=== PATIENT | female | born 1985 | race American Indian/Alaskan Native ===

== ENCOUNTER 2020-06-20 16:05 | Outpatient (CLI) | payer BC ==
[2020-06-20 16:51] LABS: Hematocrit 33.6 % (30.3-42.9); Hemoglobin 10.5 gm/dl (10.1-14.3); Mean Corpuscular HGB Conc 31 % (30-34); Mean Corpuscular Volume 75 fl (79-97); Platelet Count 301 K/mm3 (140-440); Red Blood Count 4.51 M/mm3 (3.65-5.03); Red Cell Distribution Width 17.6 % (13.2-15.2)
== END 2020-06-20 16:06 | disposition home or self-care (01) ==
LOC: LAB 16:05
PROVIDERS: ATTEND Obstetrics & Gynecology
DX: Z13.29 Encounter for screening for other suspected endocrine disorder (principal); Z13.0 Encounter for screening for diseases of the blood and blood-forming organs and certain disorders involving the immune mechanism
CPT/HCPCS: 36415; 84443; 85027

== ENCOUNTER 2020-09-06 09:29 | Inpatient (IN) | payer BC ==
[2020-09-05 11:09] LABS: Basophils % (Auto) 0.6 % (0.0-1.8); Eosinophils # (Auto) 0.1 K/mm3 (0.0-0.4); Eosinophils % (Auto) 1.5 % (0.0-4.3); Hemoglobin 10.4 gm/dl (10.1-14.3); Lymphocytes # (Auto) 2.3 K/mm3 (1.2-5.4); Lymphocytes % (Auto) 31.4 % (13.4-35.0); Mean Corpuscular HGB Conc 32 % (30-34); Mean Corpuscular Volume 73 fl (79-97); Monocytes # (Auto) 0.5 K/mm3 (0.0-0.8); Monocytes % (Auto) 6.5 % (0.0-7.3); Platelet Count 336 K/mm3 (140-440); Red Cell Distribution Width 18.7 % (13.2-15.2)
--- NOTE | 2020-09-05 13:53 | History and Physical Report ---
History of Present Illness Date of examination: 08/31/20 Date of admission: 09/06/2020 Chief complaint: Menorrhagia, fibroids, endometrial mass, pelvic pain History of present illness: c/o consistent, sharp lower ABD pain since Saturday. Reports was seen by PCP who advised her to f/u with [facility] for TVUS to assess her sx. Has been taking OTC Motrin with minimal pain relief. States was told have small fibroids in 2017 but denies any hx of complications related to them. Reports regular monthly cycles that have been heavier and last longer for the past year. She reports she wears two overnight pads at a time and changes them q 2 hrs d/t saturation. Her cycles last 5-6 days instead of 3-4 days. Plus her cycles are more painful which used to not be an issue for her. Does not use any primary form of contraception. Last pap 2016 and reports negative results. Also reports occassional dyspareunia with deep penetration and she defecates less than normal but has no difficulties with defecation. Denies fever, chills, chest pain, N/V, flank pain, dysuria, urinary frequency/urgency, foul-smelling or dark-colored urine, constipation, diarrhea, hematuria, blood in stools, vaginal discharge or odor, itching, burning, abnormal vaginal bleeding or postcoital bleeding, hx of abnormal paps, any STD hx, ovarian cyst, or PCOS Past History : 1 Term Births: 1 Premature Births: 0 Living Children: 1 Para: 1 Mult. Births: 0 Prev : 0 Prev. attempt? 0 Aborta: 0 Elect. Ab: 0 Spont. Ab: 0 Ectopics: 0 # 1 Delivery date: 2007 Delivery type: PRINCIPAL TECHNICAL SPECIALIST History Uterine Surgery (not C/S): negative Operations: Abdominoplasty (2015) and breast reduction (2018) cosmetic surgeries; scar revision of abdominolasty incision (2019) Hospitalizations: negative Anesthesia Complications: negative Abnormal PAP: negative Uterine Anomaly: positive fibroids ADOLFO Exposure: negative Infertility: negative Infection History HIV Risk Eval: no Personal hx. 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 Fibroids Past Surgical History: Reviewed history from 06/15/2020 and no changes required: Abdominoplasty (2015) and breast reduction (2018) cosmetic surgeries; scar revision of abdominolasty incision (2019) Family History Summary: Reviewed history and no changes required: 09/05/2020 Other Family Member - Has No Family History of Uterine Cancer - Entered On: 06/16/2020 Other Family Member - Has No Family History of Small Bowel Cancer - Entered On: 06/16/2020 Other Family Member - Has No Family History of Stomach Cancer - Entered On: 06/16/2020 Other Family Member - Has No Family History of Pancreatic Cancer - Entered On: 06/16/2020 Other Family Member - Has No Family History of Ovarvian Cancer - Entered On: 06/16/2020 Other Family Member - Has No Family History of Kidney/Urinary Tract Cancer - Entered On: 06/16/2020 Other Family Member - Has No Family History of Spontaneous DVT-PE - Entered On: 06/16/2020 Other Family Member - Has No Family History of Colon Cancer - Entered On: 06/16/2020 Other Family Member - Has No Family History of Brain Cancer - Entered On: 06/16/2020 Other Family Member - Has No Family History of Breast Cancer - Entered On: 2020 Other Family Member - Has No Family History of Biliary Tract Cancer - Entered On: 06/16/2020 Other Family Member - Has Family History of Diabetes - Entered On: 04/03/2019 Social History: Reviewed history from 04/03/2019 and no changes required: Patient is single Smoking History: Patient has never smoked. Risk Factors: Smoked Tobacco Use: Never smoker Smokeless Tobacco Use: Never Passive smoke exposure: no Drug use: no HIV high-risk behavior: no Alcohol use: yes Exercise: yes Seatbelt use: 100 % Previous Tobacco Use: Signed On 08/10/2020 Smoked Tobacco Use: Never smoker Smokeless Tobacco Use: Never Passive smoke exposure: no Drug use: no HIV high-risk behavior: no Caffeine use: <1 drinks per day Previous Alcohol Use: Signed On 08/10/2020 Alcohol use: yes Type: occ Drinks per day: social Exercise: yes Times per week: occ Type of Exercise: walking, jogging, and crunches Seatbelt use: 100 % PAP Smear History: Date of Last PAP Smear: 06/15/2020 Physical Exam Appearance: well developed, well nourished, no acute distress Other Exams Lungs: no rales, rhonchi, or wheezes Heart: S1, S2, no murmur, rub, or gallop Genitourinary Exam Uterus: deferred for EUA Impression & Recommendations: Problem # 1: Menorrhagia (ICD-626.2) (HYY09-X59.0) Her updated medication list for this problem includes: Multivitamins Oral Capsule (Multiple vitamin) Aleve Tablet (Naproxen sodium tabs) Motrin Ib Capsule (Ibuprofen caps) Orders: Ofc Vst Est 46310 (CPT-36919) Diagnosis explained to patient . Discussed with patient various medical, surgical and radiological therapies common for treatment including, but not limited to, myomectomy, hysterectomy and uterine artery embolization. Discussed risks and benefits of laparotomy, laparoscopy, and robotic assisted approaches for myomectomy. Patient desires treatment in the form of abdominal myomectomy. The risks and alternatives for this surgery were reviewed with the patient. She was informed of the risks of the surgery including, but not limited to, pain, infection, bleeding possibly heavy enough to require a blood transfusion with associated risks of infections (hepatitis and HIV) and transfusion reactions, possible hysterectomy, possible damage to bowel, bladder or ureter(s) and surrounding organs. Patient advised the small risks of spreading of malignancy if morcellation is required during the surgery patient understands and approves performing if necessary. Questions answered. She was imformed menorrhagia may persist or recur as long and she has a uterus. Consent reviewed and signed The patient was instructed/informed the following: The normal length of hospital stay for this procedure. Nothing to eat or drink after midnight the evening prior to surgery.. Pre-op instruction sheets given. Wound care instructions given. Problem # 2: Endometrial mass (ICD-236.0) (LMK50-S82.0) Will proceed with hysteroscopic ressection to possible prevent entering the cavity at the time of myometcomy. She was informed of possibel perforation that may require hysterectomy that will prevent furture pregnancie. Orders: Ofc Vst Est 21195 (CPT-46513) Problem # 3: Fibroids of uterus; Intramural (ICD-218.1) (BUQ12-L26.1) Orders: Ofc Vst Est 16568 (CPT-49732) Her updated medication list for this problem includes: Aleve Tablet (Naproxen sodium tabs) Motrin Ib Capsule (Ibuprofen caps) She was informed more fibroids may develop that require additonal surgeries or procedures Problem # 4: Dysmenorrhea (ICD-625.3) (EHA99-V21.6) Her updated medication list for this problem includes: Multivitamins Oral Capsule (Multiple vitamin) Aleve Tablet (Naproxen sodium tabs) Motrin Ib Capsule (Ibuprofen caps) Orders: Ofc Vst Est 39105 (CPT-34744) Problem # 5: Pelvic and perineal pain (ICD-789.00) (PNJ77-R11.2) It was extensively explained to her that her pain may persist, recur or change in nature due to the difficulty with determining the exact etiology(ies) of chronic pelvic pain or development of adhesions. She declined other treatment options at this time. Questions were encouraged and answered Her updated medication list for this problem includes: Aleve Tablet (Naproxen sodium tabs) Motrin Ib Capsule (Ibuprofen caps) Orders: Ofc Vst Est 35736 (CPT-86939) Medications Added to Medication List This Visit: 1) Multivitamins Oral Capsule (Multiple vitamin) ] Medications and Allergies Allergies Allergy/AdvReac Type Severity Reaction Status Date / Time No Known Allergies Allergy Unverified 08/31/20 17:18 Home Medications Medication Instructions Recorded Confirmed Last Taken Type No Known Home Medications [No 08/31/20 08/31/20 Unknown History Reported Home Medications] Active Meds: Active Medications Cefazolin Sodium (Ancef/Sterile Water 2 Gm/20 Ml) 2 gm in 20 mls @ 80 mls/hr IV PREOP NR; Protocol Results - Labs 09/05/20 06:00 Abnormal lab results 09/05/20 Range/Units 06:00 MCV 73 L (79-97) fl MCH 23 L (28-32) pg RDW 18.7 H (13.2-15.2) % Assessment and Plan - Patient Problems (1) Menorrhagia Status: Acute (2) Endometrial mass Status: Acute (3) Pelvic pain Status: Acute (4) Secondary dysmenorrhea Status: Acute (5) Fibroids Status: Acute
--- NOTE | 2020-09-05 15:19 | Anesthesia Consultation ---
Anesthesia Consult and Med Hx Date of service: 09/06/20 - Airway Anesthetic Teeth Evaluation: Caps ROM Head & Neck: Adequate Mental/Hyoid Distance: Adequate Mallampati Class: Class III Intubation Access Assessment: Probably Good - Pre-Operative Health Status ASA Pre-Surgery Classification: ASA2 Proposed Anesthetic Plan: General Nerve Block: TAP - Central Nervous System Hx Psychiatric Problems: No - Hematic Hx Sickle Cell Disease: No - Other Systems Hx Cancer: No Hx Obesity: Yes - Additional Comments Anesthesia Medical History Comments: Works as RT at [employer]
[2020-09-06] MEDS ORDERED: MAGNESIUM OXIDE 400 MG TAB PO SCH (10:00)
[2020-09-06] MEDS ORDERED: LACTATED RINGERS 1,000 ML IV SCH (10:00)
[2020-09-06] MEDS ORDERED: GABAPENTIN 300 MG CAP PO NR (10:00)
[2020-09-06] MEDS ORDERED: fentaNYL 100 MCG/2 ML INJ IV SCH (10:00)
[2020-09-06] MEDS ORDERED: ceFAZolin/Water 2 GM/20 ML 2 GM/20 ML SYRINGE IV NR (10:00)
[2020-09-06] MEDS ORDERED: MIDAZOLAM 2 MG/2 ML INJ IV NR (10:00)
[2020-09-06] MEDS ORDERED: ACETAMINOPHEN 500 MG TAB PO SCH (10:00)
[2020-09-06] MEDS ORDERED: CELECOXIB 200 MG CAP PO NR (10:00)
--- NOTE | 2020-09-06 10:07 | Anesthesia Day of Surgery ---
Anesthesia Day of Surgery - Day of Surgery Patient Examined: Yes Patient H&P Reviewed: Yes Patient is NPO: Yes
[2020-09-06] MEDS ORDERED: BUPIVACAINE/PF (0.25%) 2.5 MG/ML 30 ML VIAL INFILTRATI ONE (10:10)
[2020-09-06] MEDS ORDERED: dexAMETHasone 4 MG/ML VIAL ONE (10:10)
[2020-09-06] MEDS ORDERED: HYDROmorphone 1 MG/1 ML INJ IV PRN ×4 (10:30→18:42)
[2020-09-06] MEDS ORDERED: ONDANSETRON 4 MG/2 ML INJ IV PRN ×3 (10:30→18:42)
[2020-09-06] MEDS ORDERED: ONDANSETRON 4 MG/2 ML INJ ONE (13:22)
[2020-09-06] MEDS ORDERED: HYDROmorphone 1 MG/1 ML INJ ONE (13:23)
[2020-09-06] MEDS ORDERED: fentaNYL 100 MCG/2 ML INJ ONE (13:23)
[2020-09-06] MEDS ORDERED: propofoL 200 MG/20 ML VIAL IV ONE (13:23)
[2020-09-06] MEDS ORDERED: dexAMETHasone 20 MG/5 ML VIAL ONE (13:24)
[2020-09-06] MEDS ORDERED: ePHEDrine SULFATE 50 MG/1 ML INJ ONE (13:24)
[2020-09-06] MEDS ORDERED: LIDOCAINE MPF (2%) 20 MG/1 ML VIAL 5 ML ONE (13:24)
[2020-09-06] MEDS ORDERED: VASOPRESSIN 20 UNIT/1 ML INJ ONE (13:32)
[2020-09-06] MEDS ORDERED: SODIUM CHLORIDE 0.9% 100 ML ONE ×2 (13:32→16:27)
[2020-09-06] MEDS ORDERED: CITRIC ACID-SOD CITRATE 500 ML IV ONE (13:55)
[2020-09-06] MEDS ORDERED: VASOPRESSIN 20 UNIT/1 ML INJ IM ONE (15:15)
[2020-09-06] MEDS ORDERED: SODIUM CHLORIDE 0.9% IRR 1,500 ML BOTTLE IR ONE (15:15)
[2020-09-06] MEDS ORDERED: SODIUM CHLORIDE 0.9% 100 ML IVPB IV ONE (15:15)
[2020-09-06] MEDS ORDERED: SODIUM CHLORIDE 0.9% IRRIG SOLN 2000 ML IR ONE (15:15)
[2020-09-06] MEDS ORDERED: LACTATED RINGERS 1,000 ML ONE (16:12)
[2020-09-06] MEDS ORDERED: ROCURONIUM 50 MG/5 ML INJ IV ONE (16:16)
[2020-09-06] MEDS ORDERED: KETOROLAC 30 MG/1 ML INJ ONE (16:46)
[2020-09-06] MEDS ORDERED: NEOSTIGMINE 10MG/10 ML INJ MDV ONE (16:51)
[2020-09-06] MEDS ORDERED: GLYCOPYRROLATE 0.4 MG/2 ML INJ ONE ×2 (16:52→16:53)
[2020-09-06] MEDS: HYDROmorphone 1 MG/1 ML INJ IV PRN ×5 (17:23→19:00)
--- NOTE | 2020-09-06 17:28 | Post Operative Note ---
Pre-op diagnosis: h'scopic m'ectomy, abd m'ectomy PAULO Post-op diagnosis: same Procedure: h'scopic m'ectomy, abd m'ectomy PAULO Anesthesia: GETA Surgeon: ALMA VALLEJO ([facility] ) Estimated blood loss: other (325mL, CS 125) Specimen disposition: to lab Condition: stable Disposition: PACU
--- NOTE | 2020-09-06 18:09 | Post Anesthesia Evaluation ---
- Post Anesthesia Evaluation Patient Participated: Yes Airway Patent: Yes Stable Respiratory Function: Yes Nausea/Vomiting: No Temp > 96.8F: Yes Pain Manageable: Yes Adequeate Hydration: Yes Anesthesia Complications: No Block Receding Appropriately: Yes Patient on Ventilator: No
[2020-09-06] MEDS ORDERED: METOCLOPRAMIDE 10 MG/2 ML INJ IV PRN (18:42)
[2020-09-06] MEDS ORDERED: D5W/0.9% NACL 1,000 ML IV SCH (18:42)
--- NOTE | 2020-09-06 19:07 | Operative Report ---
Operative Report Operative Report: Date: 09/06/2020 PREOPERATIVE DIAGNOSIS: 1. Uterine fibroids 2. Menorrhagia 3. Pelvic pain 4. Desires fertility 5. Endometrial mass POSTOPERATIVE DIAGNOSIS: 1. Uterine fibroids 2. Menorrhagia 3. Pelvic pain 4. Desires fertility 5. Endometrial mass 6. Pelvic adhesions OPERATION PERFORMED: 1. Hysteroscopic resection of endometrial mass 2. Abdominal myomectomy 3. Lysis of adhesion SURGEON: Judy Orourke MD BANK OPERATIONS OFFICER: Kael Todd ANESTHESIA: General. ESTIMATED BLOOD LOSS: 350 mL. She received 125 mils of Cell Saver blood COMPLICATIONS: None. OPERATIVE FINDINGS: Exam under anesthesia revealed the uterus to be approximately 18 weeks size, fixed. DESCRIPTION OF OPERATION: The patient was seen in the preoperative suite. Expected procedure and postoperative course discussed with her. She was taken to the operative suite where general anesthesia was induced with only the health insurance specialist and anesthesiologist present. She was placed in a dorsal lithotomy position. Exam under anesthesia revealed as above. She was prepped and draped in the normal sterile fashion. Timeout was performed. Coello catheter was introduced into the bladder. A bivalve operative speculum was placed in the vagina. The cervix and vagina were grossly normal with no obvious masses or deformities and the anterior lip of the cervix was grasped with the single-tooth tenaculum. The uterus was sounded to ~12 cm. The cervix was progressively dilated to allow the operative hysteroscope. Under direct visualization, the right os was visualized. The endometrial lining appeared to have been. However, there was no obvious evidence of malignancy. There was an approximately 2 cm round lesion noted on the left lateral wall obscuring the ability to see the left ostia. At this point the Myosure device was used to resect the mass in the usual fashion. The tissue was obtained and sent to Pathology for evaluation, permanent. The hysteroscope was introduced again, no evidence of perforation was noted. At this point procedure was ended. The single-tooth tenaculum and speculum were removed. The cervix was found to be hemostatic. Counts were correct. Distention fluid: Normal saline Deficit: 50 mL Sterile gloves were placed and then attention was turned to the abdomen. A Pfannenstiel skin incision was made with a scalpel and carried down to the underlying fascia with a Bovie. This incision was extended laterally using Monroe scissors. The superior and inferior aspects of this incision were grasped with the Antonio clamps, elevated, and the rectus muscles were dissected off. Access w as gained to the peritoneal cavity through a separation of the rectus muscles. The pelvis showed an enlarged multiple fibroid uterus. No evidence of malignancy was noted. She was placed in Trendelenburg position. The bowel was placed in the upper abdomen using large moist lap pads. The O'Braden- O'Fermin retractor was placed into the patients abdomen and the bowel was secured in the upper abdomen with the abdominal blade and the bladder blade was placed as well to facilitate visualization. Once there was proper visualization of the uterus, Pitressin was injected along the myoma surfaces. Multiple uterine fibroids were noted throughout the uterus. Each myoma was isolated and, using the needle tip Bovie cautery, serosa was incised and the fibroids were grasped with the a towel clip and removed from the shell with blunt and sharp dissection. An incision was made on the anterior aspect of the uterus where a large degenerating fibroid or adenomyoma was noted that was removed in pieces and sent to pathology, permanent. The posterior uterine cavity was entered in order to remove a fibroid that was palpated. After careful visualization and palpation no other fibroids were identified. Each defect was closed in layers using 0 Vicryl in a series of [id number]. Hemostasis was ensured throughout each incision site. The pelvis was then irrigated with warm normal saline and again hemostasis was ensured. Surgicel as well as Interceed was applied over the incisions of the uterus. Hemostasis was noted. All packs and retractors were removed from the patients abdomen. She was flattened out of the Trendelenburg position. The fascia was reapproximated using 0 Vicryl in a simple running stitch. The subcutaneous tissue was closed using 0 Vicryl suture in a simple running stitch and finally the skin was closed with 4- 0 Monocryl in a subcuticular manner. Sponge, lap, and needle counts were correct x3 and she was taken to the recovery room in stable condition. The posterior of the uterine cavity was entered while removing the fibroids therefore this patient will require for delivery.
[2020-09-06] MEDS ORDERED: ACETAMINOPHEN 325 MG TAB PO SCH (20:00)
--- NOTE | 2020-09-06 20:11 | Event Note ---
Date: 09/06/20 Patient resting in bed. Operative findings and procedures explained. Plan of care discussed. Patient states Dilaudid is not helping her pain. Pain management strategy discussed. RN to determine what pain medication the patient would like.Will consider pain medication as requested by the patient if appropriate. Per RN now patient is upset b/c her son will not be allowed to visit [facility] d/t [facility] policy.
[2020-09-06] MEDS ORDERED: NALOXONE 2 MG/2 ML INJ IV PRN (20:13)
[2020-09-06] MEDS: ACETAMINOPHEN 500 MG TAB PO SCH (20:32)
[2020-09-06] MEDS: FAMOTIDINE 20 MG/2 ML INJ IV SCH (21:35)
[2020-09-07] MEDS: KETOROLAC 30 MG/1 ML INJ IV SCH ×4 (00:35→17:41)
[2020-09-07] MEDS: HYDROmorphone 1 MG/1 ML INJ IV PRN (01:40)
[2020-09-07] MEDS: ACETAMINOPHEN 500 MG TAB PO SCH ×3 (02:36→14:21)
[2020-09-07] MEDS: ceFAZolin/NS 1 GM/50 ML 1 GM/50 ML BAG IV SCH ×2 (02:36→11:47)
[2020-09-07 06:05] LABS: Hematocrit 27.8 % (30.3-42.9); Hemoglobin 8.7 gm/dl (10.1-14.3)
[2020-09-07] MEDS ORDERED: HYDROmorphone 1 MG/1 ML INJ IV PRN (09:30)
--- NOTE | 2020-09-07 09:42 | Progress Note ---
Assessment and Plan - Patient Problems (1) S/P myomectomy Current Visit: Yes Status: Acute Plan to address problem: Doing well, will advance diet after flatus. Plan of care explained. Encourage ambulation (2) Anemia Current Visit: Yes Status: Acute Qualifiers: Other causes of anemia: acute posthemorrhagic Plan to address problem: Asymptomatic Observe for now, will start FeSO when she start solid diet (3) Menorrhagia Current Visit: No Status: Acute (4) Endometrial mass Current Visit: No Status: Acute (5) Pelvic pain Current Visit: No Status: Acute (6) Secondary dysmenorrhea Current Visit: No Status: Acute (7) Fibroids Current Visit: No Status: Acute Subjective - Subjective Interval history: c/o consistent, sharp lower ABD pain since Saturday. Reports was seen by PCP who advised her to f/u with [facility] for TVUS to assess her sx. Has been taking OTC Motrin with minimal pain relief. States was told have small fibroids in 2017 but denies any hx of complications related to them. Reports regular monthly cycles that have been heavier and last longer for the past year. She reports she wears two overnight pads at a time and changes them q 2 hrs d/t saturation. Her cycles last 5-6 days instead of 3-4 days. Plus her cycles are more painful which used to not be an issue for her. Does not use any primary form of contraception. Last pap 2016 and reports negative results. Also reports occassional dyspareunia with deep penetration and she defecates less than normal but has no difficulties with defecation. Denies fever, chills, chest pain, N/V, flank pain, dysuria, urinary frequency/urgency, foul-smelling or dark-colored urine, constipation, diarrhea, hematuria, blood in stools, vaginal discharge or odor, itching, burning, abnormal vaginal bleeding or postcoital bleeding, hx of abnormal paps, any STD hx, ovarian cyst, or PCOS Past History : 1 Term Births: 1 Premature Births: 0 Living Children: 1 Para: 1 Mult. Births: 0 Prev : 0 Prev. attempt? 0 Aborta: 0 Elect. Ab: 0 Spont. Ab: 0 Ectopics: 0 # 1 Delivery date: 2005 Delivery type: FRONT DESK OFFICER History Uterine Surgery (not C/S): negative Operations: Abdominoplasty (2015) and breast reduction (2018) cosmetic surgeries; scar revision of abdominolasty incision (2019) Hospitalizations: negative Anesthesia Complications: negative Abnormal PAP: negative Uterine Anomaly: positive fibroids ADOLFO Exposure: negative Infertility: negative Infection History HIV Risk Eval: no Personal hx. 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 Fibroids Past Surgical History: Reviewed history from 06/15/2020 and no changes required: Abdominoplasty (2015) and breast reduction (2018) cosmetic surgeries; scar revision of abdominolasty incision (2019) Family History Summary: Reviewed history and no changes required: 09/05/2020 Other Family Member - Has No Family History of Uterine Cancer - Entered On: 06/16/2020 Other Family Member - Has No Family History of Small Bowel Cancer - Entered On: 06/16/2020 Other Family Member - Has No Family History of Stomach Cancer - Entered On: 06/16/2020 Other Family Member - Has No Family History of Pancreatic Cancer - Entered On: 06/16/2020 Other Family Member - Has No Family History of Ovarvian Cancer - Entered On: 06/16/2020 Other Family Member - Has No Family History of Kidney/Urinary Tract Cancer - Entered On: 06/16/2020 Other Family Member - Has No Family History of Spontaneous DVT-PE - Entered On: 06/16/2020 Other Family Member - Has No Family History of Colon Cancer - Entered On: 06/16 Other Family Member - Has No Family History of Brain Cancer - Entered On: 06/16/2020 Other Family Member - Has No Family History of Breast Cancer - Entered On: 06/16/2020 Other Family Member - Has No Family History of Biliary Tract Cancer - Entered On: 06/16/2020 Other Family Member - Has Family History of Diabetes - Entered On: 04/03/2019 Social History: Reviewed history from 04/03/2019 and no changes required: Patient is single Smoking History: Patient has never smoked. Risk Factors: Smoked Tobacco Use: Never smoker Smokeless Tobacco Use: Never Passive smoke exposure: no Drug use: no HIV high-risk behavior: no Alcohol use: yes Exercise: yes Seatbelt use: 100 % Previous Tobacco Use: Signed On - 08/10/2020 Smoked Tobacco Use: Never smoker Smokeless Tobacco Use: Never Passive smoke exposure: no Drug use: no HIV high-risk behavior: no Caffeine use: <1 drinks per day Previous Alcohol Use: Signed On - 08/10/2020 Alcohol use: yes Type: occ Drinks per day: social Exercise: yes Times per week: occ Type of Exercise: walking, jogging, and crunches Seatbelt use: 100 % PAP Smear History: Date of Last PAP Smear: 06/15/2020 Physical Exam Appearance: well developed, well nourished, no acute distress Other Exams Lungs: no rales, rhonchi, or wheezes Heart: S1, S2, no murmur, rub, or gallop Genitourinary Exam Uterus: deferred for EUA Impression & Recommendations: Problem # 1: Menorrhagia (ICD-626.2) (SAZ22-T74.0) Her updated medication list for this problem includes: Multivitamins Oral Capsule (Multiple vitamin) Aleve Tablet (Naproxen sodium tabs) Motrin Ib Capsule (Ibuprofen caps) Orders: Ofc Vst Est 83486 (CPT-35345) Diagnosis explained to patient . Discussed with patient various medical, surgical and radiological therapies common for treatment including, but not limited to, myomectomy, hysterectomy and uterine artery embolization. Discussed risks and benefits of laparotomy, laparoscopy, and robotic assisted approaches for myomectomy. Patient desires treatment in the form of abdominal myomectomy. The risks and alternatives for this surgery were reviewed with the patient. She was informed of the risks of the surgery including, but not limited to, pain, infection, bleeding possibly heavy enough to require a blood transfusion with associated risks of infections (hepatitis and HIV) and transfusion reactions, possible hysterectomy, possible damage to bowel, bladder or ureter(s) and surrounding organs. Patient advised the small risks of spreading of malignancy if morcellation is required during the surgery patient understands and approves performing if necessary. Questions answered. She was imformed menorrhagia may persist or recur as long and she has a uterus. Consent reviewed and signed The patient was instructed/informed the following: The normal length of hospital stay for this procedure. Nothing to eat or drink after midnight the evening prior to surgery.. Pre-op instruction sheets given. Wound care instructions given. Problem # 2: Endometrial mass (ICD-236.0) (YGQ06-S21.0) Will proceed with hysteroscopic ressection to possible prevent entering the cavity at the time of myometcomy. She was informed of possibel perforation that may require hysterectomy that will prevent furture pregnancie. Orders: Ofc Vst Est 36467 (CPT-89114) Problem # 3: Fibroids of uterus; Intramural (ICD-218.1) (NOJ96-E02.1) Orders: Ofc Vst Est 94556 (CPT-26769) Her updated medication list for this problem includes: Aleve Tablet (Naproxen sodium tabs) Motrin Ib Capsule (Ibuprofen caps) She was informed more fibroids may develop that require additonal surgeries or procedures Problem # 4: Dysmenorrhea (ICD-625.3) (IZX20-W39.6) Her updated medication list for this problem includes: Multivitamins Oral Capsule (Multiple vitamin) Aleve Tablet (Naproxen sodium tabs) Motrin Ib Capsule (Ibuprofen caps) Orders: Ofc Vst Est 33614 (CPT-83561) Problem # 5: Pelvic and perineal pain (ICD-789.00) (ZUP03-I46.2) It was extensively explained to her that her pain may persist, recur or change in nature due to the difficulty with determining the exact etiology(ies) of chronic pelvic pain or development of adhesions. She declined other treatment options at this time. Questions were encouraged and answered Her updated medication list for this problem includes: Aleve Tablet (Naproxen sodium tabs) Motrin Ib Capsule (Ibuprofen caps) Orders: Ofc Vst Est 87149 (CPT-56545) Medications Added to Medication List This Visit: 1) Multivitamins Oral Capsule (Multiple vitamin) ] Objective - Vital Signs Latest vital signs: Vital Signs Temp Pulse Resp Resp BP BP Pulse Ox 09/07/20 07:35 98.1 F 69 18 105/63 100 09/07/20 06:08 16 09/07/20 04:51 98.1 F 70 18 103/56 98 09/07/20 02:36 16 09/07/20 01:40 18 09/07/20 00:50 98.2 F 71 20 103/55 100 09/06/20 22:06 16 09/06/20 21:36 16 09/06/20 20:32 16 09/06/20 20:17 98.0 F 84 18 106/75 99 09/06/20 20:00 18 09/06/20 19:00 20 09/06/20 18:40 97.9 F 71 18 130/72 100 09/06/20 18:00 97.3 F L 70 20 130/70 99 09/06/20 17:45 63 20 140/78 100 09/06/20 17:30 62 20 143/74 100 09/06/20 17:20 65 20 139/71 100 09/06/20 17:15 65 20 135/73 100 09/06/20 17:12 97.5 F L 71 16 127/77 100 09/06/20 13:49 59 L 16 106/60 100 09/06/20 13:44 68 16 99/56 100 09/06/20 13:39 63 16 105/53 99 09/06/20 13:34 70 16 106/71 99 09/06/20 13:30 83 16 105/51 99 09/06/20 13:25 87 16 105/50 100 09/06/20 13:19 59 L 16 93/52 100 09/06/20 13:15 60 18 104/57 100 09/06/20 10:10 98.4 F 59 L 22 123/77 100 Intake and Output 09/06/20 09/07/20 09/07/20 22:59 06:59 14:59 Intake Total 500 240 Output Total 150 1400 400 Balance 350 -1160 -400 Intake: IV 500 Oral 240 Output: Urine 150 1400 400 Indwelling Catheter 1400 Void 200 Other: Total, Intake Amount 120 Total, Output Amount 800 200 Voiding Method Indwelling Catheter Toilet # Voids 1 Void 1 - Labs Labs: Abnormal lab results 09/07/20 Range/Units 05:47 Hgb 8.7 L (10.1-14.3) gm/dl Hct 27.8 L (30.3-42.9) %
[2020-09-07] MEDS: FAMOTIDINE 20 MG/2 ML INJ IV SCH ×2 (10:07→22:58)
[2020-09-07] MEDS ORDERED: IBUPROFEN 800 MG TAB PO PRN (18:00)
[2020-09-07] MEDS: oxyCODONE /ACETAMINOPHEN 5-325MG TAB PO PRN (22:58)
--- NOTE | 2020-09-08 09:41 | Discharge Summary ---
Providers - Providers Date of Admission: 09/06/20 09:29 Date of discharge: 09/08/20 Attending physician: ALMA VALLEJO Primary care physician: TRACIE BORGES Hospitalization Condition: Good Procedures: s/p Myomectomy, PAULO Hospital course: Unremarkable Disposition: DC-01 TO HOME OR SELFCARE Final Discharge Diagnosis (Prints w/discharge instructions): s/p Myomectomy/ PAULO - Discharge Diagnoses (1) S/P myomectomy Status: Acute (2) Anemia Status: Acute Qualifiers: Other causes of anemia: acute posthemorrhagic (3) Menorrhagia Status: Acute (4) Endometrial mass Status: Acute (5) Pelvic pain Status: Acute (6) Secondary dysmenorrhea Status: Acute (7) Fibroids Status: Acute Core Measure Documentation - Palliative Care Palliative Care/ Comfort Measures: Not Applicable - Core Measures Any of the following diagnoses?: none Exam - Physical Exam Narrative exam: Patient is doing well, no complaints. Tolerating regular diet and ambulating without difficulty positive flatus. Patient desires discharge home - Constitutional Vitals: Temp Pulse Resp BP Pulse Ox 98.2 F 79 18 102/49 98 09/08/20 07:37 09/08/20 07:37 09/08/20 07:37 09/08/20 07:37 09/08/20 07:37 General appearance: Present: no acute distress - Neck Neck: Present: supple - Respiratory Respiratory effort: normal Respiratory: bilateral: CTA - Cardiovascular Rhythm: regular - Extremities Extremities: no ischemia, No edema - Abdominal General gastrointestinal: Present: soft, non-distended, normal bowel sounds - Integumentary Integumentary: Present: clear, warm, dry (Incision clean, dry, intact. No signs and symptoms of infection.) - Psychiatric Psychiatric: appropriate mood/affect, intact judgment & insight, memory intact, cooperative Plan Activity: other (No sex. No driving. Ambulate approximately 1 mile on your property a day. Use your incentive spirometer every hour while awake. Void frequently.) Weight Bearing Status: Full Weight Bearing Diet: regular (Eat small meals frequently. Avoid high salt, high fat, and spicy foods. Drink approximately 70 ounces of water a day.) Wound: open to air, keep clean and dry Special Instructions: no heavy lifting (Greater than 15 pounds) Follow up with: KATERINA,TRACIE, MD [Primary Care Provider] - 7 Days ALMA VALLEJO MD [Staff Physician] - (As scheduled) Prescriptions: Docusate Sodium [Colace] 100 mg PO DAILY PRN #30 capsule PRN Reason: Constipation Ferrous Sulfate [Iron 325 MG] 325 mg PO BIDPC #90 tablet Ibuprofen [Motrin 800 MG tab] 800 mg PO Q8H PRN #30 tablet PRN Reason: Pain, Moderate (4-6) oxyCODONE /ACETAMINOPHEN [Percocet 5/325 mg] 1 - 2 tab PO Q6H PRN #14 tablet PRN Reason: Pain, Moderate (4-6)
[2020-09-08 11:51] VITALS: BP 98/55
[2020-09-08] MEDS: oxyCODONE /ACETAMINOPHEN 5-325MG TAB PO PRN (12:57)
[2020-09-08] MEDS: FAMOTIDINE 20 MG/2 ML INJ IV SCH (13:45)
== END 2020-09-08 14:05 | disposition home or self-care (01) | DRG 742 ==
LOC: EEVIPCON 09:29 → 3A 09:29 → OB 18:04
PROVIDERS: ADMIT Obstetrics & Gynecology; ATTEND Obstetrics & Gynecology
PROC: 0UB93ZZ Excision of Uterus, Percutaneous Approach (ICD-10-PCS; principal; 2020-09-06)
PROC: 0UDB8ZZ Extraction of Endometrium, Via Natural or Artificial Opening Endoscopic (ICD-10-PCS; 2020-09-06)
DX: D25.9 Leiomyoma of uterus, unspecified (principal); D62 Acute posthemorrhagic anemia; N92.0 Excessive and frequent menstruation with regular cycle; N94.6 Dysmenorrhea, unspecified; Z20.822 Contact with and (suspected) exposure to COVID-19; D39.0 Neoplasm of uncertain behavior of uterus; Z83.3 Family history of diabetes mellitus
CPT/HCPCS: 36415; 64450; 81025; 85014; 85018; 85025; 86850; 86900; 86901; 88305; G0378; A4217; C1765; J0690; J1100; J1170; J1885; J2250; J2405; J2704; J2710; J3010; J7042; J7120; U0003

== ENCOUNTER 2020-10-14 12:10 | Outpatient (CLI) | payer BC ==
[2020-10-14 13:04] LABS: Hematocrit 30.6 % (30.3-42.9); Hemoglobin 9.2 gm/dl (10.1-14.3); Mean Corpuscular HGB Conc 30 % (30-34); Mean Corpuscular Volume 72 fl (79-97); Platelet Count 305 K/mm3 (140-440); Red Blood Count 4.25 M/mm3 (3.65-5.03); Red Cell Distribution Width 18.4 % (13.2-15.2)
== END 2020-10-14 12:11 | disposition home or self-care (01) ==
LOC: LAB 12:10
PROVIDERS: ATTEND Obstetrics & Gynecology
DX: N92.0 Excessive and frequent menstruation with regular cycle (principal)
CPT/HCPCS: 36415; 84443; 85027